=== PATIENT | female | born 1940 | race Caucasian/White ===

== ENCOUNTER 2023-07-16 15:36 | Emergency (ER) | payer MEDICARE ==
--- NOTE | 2023-07-16 15:54 | ED ---
Fall HPI - General Source: patient, RN notes reviewed Mode of arrival: ambulatory Limitations: no limitations <Jorge Waters - Last Filed: 07/16/23 15:52> <Micha Parisi - Last Filed: 07/16/23 19:00> - General Chief Complaint: Fall Stated Complaint: fall lump on head Time Seen by Provider: 07/16/23 15:45 - History of Present Illness Initial Comments: 83-year-old female presents emergency Department with chief complaint of a fall. Patient states she turned quickly lost her balance and fell. Patient conscious . Patient does have complaint of head pain. Patient denies any blood thinners denies any neck, extremity injuries states she just sore all over her back, hips arms. She states she has no pain with movement denies any chest pain no palpitations no other complaints. (Jorge Waters) - Related Data Allergies Allergy/AdvReac Type Severity Reaction Status Date / Time Penicillins Allergy Rash/Hives Verified 07/16/23 15:43 Review of Systems ROS Other: All systems not noted in ROS Statement are negative. <Jorge Waters - Last Filed: 07/16/23 15:52> ROS Other: All systems not noted in ROS Statement are negative. <Micha Parisi - Last Filed: 07/16/23 19:00> ROS Statement: Those systems with pertinent positive or pertinent negative responses have been documented in the HPI. Past Medical History Past Medical History: Heart Failure, Hyperlipidemia, Hypertension History of Any Multi-Drug Resistant Organisms: None Reported Past Surgical History: No Surgical Hx Reported Past Psychological History: Bipolar Smoking Status: Never smoker Past Alcohol Use History: Occasional Past Drug Use History: None Reported <Jorge Waters - Last Filed: 07/16/23 15:52> General Exam Limitations: no limitations General appearance: alert, in no apparent distress Head exam: Present: atraumatic, normocephalic. Absent: normal inspection (Hematoma noted posterior) Eye exam: Present: normal appearance, PERRL, EOMI. Absent: scleral icterus, conjunctival injection, periorbital swelling ENT exam: Present: normal exam, normal oropharynx, mucous membranes moist Neck exam: Present: normal inspection, full ROM. Absent: tenderness, meningismu s, lymphadenopathy Respiratory exam: Present: normal lung sounds bilaterally. Absent: respiratory distress, wheezes, rales, rhonchi, stridor Cardiovascular Exam: Present: regular rate, normal rhythm, normal heart sounds. Absent: systolic murmur, diastolic murmur, rubs, gallop, clicks Extremities exam: Present: normal inspection, full ROM, normal capillary refill. Absent: tenderness, pedal edema, joint swelling, calf tenderness Back exam: Present: full ROM. Absent: tenderness Neurological exam: Present: alert, oriented X3, CN II-XII intact, reflexes normal. Absent: motor sensory deficit <Jorge Waters - Last Filed: 07/16/23 15:52> Course Vital Signs 07/16/23 07/16/23 15:39 17:39 Temperature 97.9 F 97.7 F Pulse Rate 66 64 Respiratory 20 16 Rate Blood Pressure 138/63 140/77 O2 Sat by Pulse 96 97 Oximetry Medical Decision Making <InocentejacquesalannahMicha - Last Filed: 07/16/23 19:00> - Medical Decision Making Was pt. sent in by a medical professional or institution (JARED Maguire, SHUTTLE BUGGY OPERATOR, urgent care, hospital, or senior care...) When possible be specific @ -No Did you speak to anyone other than the patient for history (EMS, parent, family, police, friend...)? What history was obtained from this source @ -No Did you review nursing and triage notes (agree or disagree)? Why? @ -I reviewed and agree with nursing and triage notes Were old charts reviewed (outside hosp., previous admission, EMS record, old EKG, old radiological studies, urgent care reports/EKG's, senior care records)? Report findings @ -No old charts were reviewed Differential Diagnosis (chest pain, altered mental status, abdominal pain women, abdominal pain men, vaginal bleeding, weakness, fever, dyspnea, syncope, headache, dizziness, GI bleed, back pain, seizure, CVA, palpatations, mental health, musculoskeletal)? @ -Fall, head injury, concussion, intracranial hemorrhage, fracture, sprain, strain EKG interpreted by me (3pts min.). @ -None done X-rays interpreted by me (1pt min.). @ -None done CT interpreted by me (1pt min.). @ -Noncontrast CT brain/cervical spine was reviewed myself and shows no acute traumatic abnormality. I agree with the radiologist's interpretation as above. U/S interpreted by me (1pt. min.). @ -None done What testing was considered but not performed or refused? (CT, X-rays, U/S, labs)? Why? @ -None What meds were considered but not given or refused? Why? @ -None Did you discuss the management of the patient with other professionals (professionals i.e. , PA, SHUTTLE BUGGY OPERATOR, lab, RT, psych nurse, mental health social worker, manager asset management, teacher, customs and border protection officer, caser in)? Give summary @ -No Was smoking cessation discussed for >3mins.? @ -No Was critical care preformed (if so, how long)? @ -No Were there social determinants of health that impacted care today? How? (Homelessness, low income, unemployed, alcoholism, drug addiction, transportation, low edu. Level, literacy, decrease access to med. care, fdc, rehab)? @ -No Was there de-escalation of care discussed even if they declined (Discuss DNR or withdrawal of care, Hospice)? DNR status @ -No What co-morbidities impacted this encounter? (DM, HTN, Smoking, COPD, CAD, Cancer, CVA, ARF, Chemo, Hep., AIDS, mental health diagnosis, sleep apnea, morbid obesity)? @ -None Was patient admitted / discharged? Hospital course, mention meds given and route, prescriptions, significant lab abnormalities, going to OR and other pertinent info. @ -Patient was initially seen and evaluated in the ED by JARED Waters. Patient was endorsed to me (secondary to end of his shift) with the patient's CT report still pending. Patient's CT brain/cervical spine report was reviewed myself, and shows no acute traumatic abnormality. CT findings, including finding of lytic foci in cervical spine, were discussed with the patient and her daughter. I have advised that the patient follow up closely with her primary care provider for further evaluation of this lytic foci if needed. I have explained to them that there are no concerning acute traumatic findings on CT. Patient and daughter were counseled about head injuries and falls, and they were clearly explained return and follow-up instructions. They both feel comfortable with the patient being discharged home at this time. Will discharge patient home with her daughter at this time. Undiagnosed new problem with uncertain prognosis? @ -No Drug Therapy requiring intensive monitoring for toxicity (Heparin, Nitro, Insulin, Cardizem)? @ -No Were any procedures done? @ -No Diagnosis/symptom? @ -Mechanical fall with head injury Acute, or Chronic, or Acute on Chronic? @ -Acute Uncomplicated (without systemic symptoms) or Complicated (systemic symptoms)? @ -Uncomplicated Side effects of treatment? @ -No Exacerbation, Progression, or Severe Exacerbation? @ -No Poses a threat to life or bodily function? How? (Chest pain, USA, DC, pneumonia, PE, COPD, DKA, ARF, appy, cholecystitis, CVA, Diverticulitis, Homicidal, Nina icidal, threat to staff... and all critical care pts) @ -No (Micha Parisi) - Radiology Data Noncontrast CT brain/cervical spine: 1. No acute intracranial CT abnormality. 2. Moderate generalized brain atrophy. 3. No evidence of acute cervical spine fracture or traumatic malalignment. 4. Mild multilevel degenerative disc disease. 5. Small lytic foci in the cervical spine, could be related to osteoporosis however multiple myeloma or metastatic disease are in the differential. (Micha Parisi) Disposition <Jorge Waters - Last Filed: 07/16/23 15:52> Is patient prescribed a controlled substance at d/c from ED?: No Time of Disposition: 19:00 <Micha Parisi - Last Filed: 07/16/23 19:00> Clinical Impression: Fall, Head injury Disposition: HOME SELF-CARE Condition: Stable Instructions (If sedation given, give patient instructions): Fall Prevention for Older Adults (ED), Head Injury (ED) Additional Instructions: Return to the ER immediately should you develop new or worsening pain or symptoms. Follow up closely with your primary care provider. Referrals: Nonstaff,Physician [Primary Care Provider] - 1-2 days Arnulfo Levine DO [STAFF PHYSICIAN] - 1-2 days
[2023-07-16] MEDS ORDERED: ACETAMINOPHEN TAB 325 MG TAB PO STA (16:57)
--- NOTE | 2023-07-16 18:45 | CT ---
EXAMINATION TYPE: CT brain cspine wo con CT DLP: 1452.2 mGycm, Automated exposure control for dose reduction was used. DATE OF EXAM: 07/16/2023 4:37 PM COMPARISON: None. CLINICAL INDICATION:Female, 83 years old with history of pain; Fall lump on occipital lobe middle an d to the right side TECHNIQUE: Brain: Multiple axial CT images of the brain were obtained without IV contrast. Cspine: Axial CT images from the skull base to the inferior aspect of T2 we obtained without intraven ous contrast. Coronal and sagittal reformatted images were also reviewed. FINDINGS: Brain: Extra-axial spaces: No abnormal extra-axial fluid collections. Ventricular system: Dilatation in proportion to cerebral atrophy. Cerebral parenchyma: No acute intraparenchymal hemorrhage or mass effect. The fallon-white junction is well maintained. Moderate generalized atrophy. Cerebellum: Moderate generalized atrophy. Mass effect: No evidence of midline shift. Intracranial vasculature: unremarkable Soft tissues: Unremarkable. Calvarium/osseous structures: No depressed skull fracture. Remote nasal bone deformity. Paranasal sinuses and mastoid air cells: Clear. Visualized orbits: Orbital contents are intact. Cervical spine: Fracture: None. Osseous structures: Bones appear osteopenic. Several small lytic areas are suggested throughout the c ervical spine with no large dominant destructive lesions seen. Mild multilevel degenerative disc dise ase and facet arthrosis, with mild canal and foraminal narrowing at C3-C4 and C5-C6 primarily. Vertebral alignment: AP alignment is within normal limits. There is mild reversal of the normal lordo sis, likely degenerative. Neck soft tissues: Prevertebral soft tissues are within normal limits. Other: The airway appears patent. Vascular calcifications along the aortic arch and cervical carotid arteries. Lung apices are clear. IMPRESSION: 1. No acute intracranial CT abnormality. 2. Moderate generalized brain atrophy. 3. No evidence of acute cervical spine fracture or traumatic malalignment. 4. Mild multilevel degenerative disc disease. 5. Small lytic foci in the cervical spine, could be related to osteoporosis however multiple myeloma or metastatic disease are in the differential.
[2023-07-16 19:23] VITALS: BP 136/82; PULSE 68; RESP 18; TEMP 97.9
== END 2023-07-16 19:09 | disposition home or self-care (01) ==
LOC: EC 15:36
DX: S00.03XA Contusion of scalp, initial encounter (principal); I11.0 Hypertensive heart disease with heart failure; I50.9 Heart failure, unspecified; Z86.59 Personal history of other mental and behavioral disorders; Z88.0 Allergy status to penicillin; W18.30XA Fall on same level, unspecified, initial encounter
CPT/HCPCS: 70450; 72125; 99284